=== PATIENT | female | born 1955 | race Caucasian/White ===

== ENCOUNTER 2021-05-19 08:54 | Emergency (ER) | payer MEDICARE, SELFPAY ==
[2021-05-19 09:04] VITALS: BP 120/61; PULSE 73; RESP 18; TEMP 37.2; O2SAT 98
--- NOTE | 2021-05-19 09:15 | ED.SKABFB ---
HPI - Skin/Abscess/Foreign Bdy General Chief complaint: Skin/Abscess/Foreign Body Stated complaint: Possible infected bite on right Arm Time Seen by Provider: 05/19/21 09:16 Source: patient, RN notes reviewed and old records reviewed Mode of arrival: ambulatory Limitations: no limitations History of Present Illness HPI narrative: 65-year-old female who presents to [facility] with complaints of red irritated 0.5cm diameter lesion to the right inner forearm since that has clear fluid draining from center, Patient states that area is somewhat itchy but denies any burning pain to area. Patient states that she has been working in the yard and is outdoors a lot, thought she had gotten bitten by some kind of insect. Patient reports that she has elvis applying Benadryl cream to area for itching. Patient denies any fevers, chills or sweats. MD complaint: rash and lesion Onset (ago): day(s) (4) Location: RUE Severity: mild Quality: pruritic Relieving factors: topical medication Treatments prior to arrival: OTC topical medication (benadryl ointment) Related Data Home Medications Medication Instructions Recorded Confirmed sertraline 100 mg PO DAILY 05/19/21 05/19/21 Allergies Allergy/AdvReac Type Severity Reaction Status Date / Time No Known Allergies Allergy Unverified 02/23/19 19:25 Review of Systems Review of Systems: Narrative: CONSTITUTIONAL: Denies fever, chills, or sweats. EYES: Denies visual changes, redness, or discharge. ENT: Denies rhinorrhea, congestion, sore throat, or otalgia. CARDIOVASCULAR: Denies chest pain, palpitations, or edema. RESPIRATORY: Denies cough or dyspnea. GASTROINTESTINAL: Denies abdominal pain, nausea, vomiting, or diarrhea. GENITOURINARY: Denies dysuria or hematuria. SKIN:Positive rash or itching with area noted to right inner forearm MUSCULOSKELETAL: Denies back pain, joint pain, or myalgia. NEUROLOGIC: Denies headache, numbness, or weakness. PSYCHIATRIC: Positive history of anxiety or depression. All systems reviewed & are unremarkable except as noted in HPI and below PMFSH Past Medical History Medical History (Updated 05/20/21 @ 13:54 by Diana Ramirez NP) Anxiety Fracture of right heel Surgical History Surgical History (Updated 05/20/21 @ 13:54 by Diana Ramirez NP) H/O: hysterectomy Hx of spinal surgery Family History Family History (Updated 05/20/21 @ 13:55 by Diana Ramirez NP) Other No significant family history Social History Social History (Updated 05/20/21 @ 13:55 by Diana Ramirez NP) Smoking status: Never smoker Alcohol intake: current Alcohol use details: rare social Substance use: never Living arrangements: with family Gender identity (if verbalized by the patient): Female Comments At time of signature, agree with nursing past medical, surgical, social and family history. There is no relevant family history pertinent to the presenting complaint Exam Narrative: Exam Narrative: GENERAL: Well-appearing, well-nourished, and in no acute distress. HEAD: Normocephalic, atraumatic. EYES: PERRLA and EOMI. ENT: Nares clear, no rhinorrhea or epistaxis. Mucous membranes moist. TM's janie with good light reflex, throat pink with no lesions or exudates, no tonsil enlargement NECK: Supple.no lymphadenopathy CHEST: Clear to auscultation. No respiratory distress.SAO2 98% on room air HEART: Regular rate and rhythm. No murmur heard. Normal peripheral pulses. ABDOMEN: Soft, nontender, nondistended, normal active bowel sounds. EXTREMITIES: Normal range of motion. No edema. SKIN: Warm, dry, 0.5cm diameter lesion to inner right forearm with clear drainage from center and surrounding redness with no induration of skin, area is pruritic with no pain to site NEURO: No focal deficits. Alert and oriented x3. Course Vital Signs Vital signs: Vital Signs Temperature 37.2 C 05/19/21 09:04 Pulse Rate 73 05/19/21 09:04 Respiratory Rate 1
== END 2021-05-19 09:44 | disposition home or self-care (01) ==
PROVIDERS: Emergency Provider Registered Nurse; PCP Internal Medicine
DX: S50.861A Insect bite (nonvenomous) of right forearm, initial encounter (principal); W57.XXXA Bitten or stung by nonvenomous insect and other nonvenomous arthropods, initial encounter; F41.9 Anxiety disorder, unspecified
CPT/HCPCS: 99213; G0463